=== PATIENT | male | born 1955 | race Caucasian/White ===

== ENCOUNTER 2016-11-18 10:46 | Inpatient (IN) | payer OTHER ==
[~2016-11-18] VITALS: Ht 177.8 cm; Wt 106.5 kg
--- NOTE | ~2016-11-18 | ECH ---
Transthoracic Echocardiography Report (TTE) Demographics Patient Name JW PENDLETON Date of Study 11/21/2016 Patient Number [id number] Visit Number [id number] Date of 1955 Room Number 523 Accession Number [id number] Gender Male Age 61 year(s) Referring Peng Torres MD Cda Teacher Leelee Gallrado [facility] Physician Glenn Esparza Physician Interpreting Amando Vanegas Molding Line Assistant Physician Supervising Ordering Physician Peng Torres MD, MD/P Nurse Stress Student Development Advisor Conclusions Summary Technically adequate exam. The estimated left ventricular ejection fraction is 60-65%. Mild left ventricular hypertrophy. No significant valvular regurgitant abnormalities. Procedure Type of Study TTE procedure:Echo Complete SF. Procedure Date Date: 11/21/2016 Start: 10:47 AM Technical Quality: Adequate visualization Indications:Fever of unknown origin. Appropriate Use Criteria: 2 Height: 70 inches Weight: 210 pounds BSA: 2.13 m Rhythm: Within normal limits HR: 77 bpm BP: 132/79 mmHg M-Mode/2D Measurements LV Diastolic Dimension: 5.09 cm LV Systolic Dimension: 3.65 cm LV Septum Diastolic: 1.29 cm LV PW Diastolic: 1.13 cm AO Root Dimension: 3.69 cm Cardiac Output: 8.05 l/min LA Dimension: 4.09 cm Cardiac Index: 3.78 l/min*m LA volume index: 32 ml/m LVOT: 2.36 cm RV Base: 3.2 cm LVOT VTI: 23.91 cm RV Mid: 2.3 cm LV Stroke volume: 104.54 ml RV Length: 7.6 cm LV Stroke volume index: 49.08 ml/m Doppler Measurements AV Peak Velocity: 1.5 m/s MV Peak E-Wave: 0.81 m/s AV Peak Gradient: 9 mmHg MV Peak A-Wave: 0.68 m/s AV Mean Gradient: 4.78 mmHg MV E/A Ratio: 1.19 LVOT Peak Velocity: 1.31 m/s MV P1/2t: 58.1 msec AV Area (Continuity):3.6 cm MV Deceleration Time: 203.1 msec MV Area (PHT): 3.79 cm PV Peak Velocity: 0.92 m/s PV Peak Gradient: 3.38 mmHg RA Area: 16.26 cm Findings Left Ventricle The left ventricle is normal in size . Mild left ventricular hypertrophy. Diastolic assessment reveals normal relaxation. Right Ventricle Normal right ventricle structure and function. Left Atrium Normal left atrial size. Right Atrium Normal right atrial size. Mitral Valve Normal mitral valve structure and function. Aortic Valve Normal aortic valve structure and function. Tricuspid Valve Normal tricuspid valve structure and function. Pulmonic Valve Normal pulmonic valve structure and function. Pericardial Effusion No evidence of pericardial effusion. Miscellaneous Visualized portions of the aortic root and ascending aorta appear normal in size. Pleural Effusion No evidence of pleural effusion. Contractility Score LV regional wall motion:(0-Non visualized 1-Normal 2-Hypokinesis 3-Akinesis 4-Dyskinesis 5-Aneurysm) Signature
--- NOTE | ~2016-11-18 | HP ---
ADMIT: 11/18/2016 RM/LOC: 523 [facility] MR#: [id number] [id number] [place], [place] [address] JW PENDLETON [address] [place] [address] History and Physical SEX: M AGE: 61 : 1955 DATE OF SERVICE: 11/18/2016 CHIEF COMPLAINT: Dizziness, diarrhea. HISTORY OF PRESENT ILLNESS: Jw is a very pleasant 61-year-old [facility] patient, who is normally seen through the [facility]. [facility] this afternoon for an elective admission for chronic alcohol abuse and dependence, but noted that he was feeling dizzy and had been having about 4-5 days of persistent profuse watery diarrhea. He was found to be hypotensive and have a bump in his baseline serum creatinine, was sent to the [facility] Emergency Department for further evaluation and management. While down in the ER, he received 2 L of intravenous fluids and replacement for his potassium and was subsequently admitted to the hospital for further observation. He was found to be hypotensive and orthostatic down in the ER. At the time I see him up on the hospital floor, he is actually feeling a little better. He was about to sit down and have dinner. He is denying any abdominal pain, blood in his stools, fevers, nausea, vomiting, chest pain, cough, rash, or swelling in his legs. PAST MEDICAL HISTORY: 1. Chronic alcohol abuse and dependence. States his last drink was 8-9 days prior to admission and again, he was just to be admitted to the [facility] for treatment. 2. Fatty liver disease, possible alcoholic cirrhosis. 3. History of GI bleed. 4. Mejia's esophagus on EGD 05/2016. 5. Spinal stenosis. 6. Hypertension. 7. Stage 3 chronic kidney disease, baseline creatinine is not known. 8. Depression. 9. Vitamin D deficiency. 10.Gout. 11.Anemia of chronic disease. PAST SURGICAL HISTORY: Noncontributory, no significant. ALLERGIES: NONE. SOCIAL HISTORY: Smokes about a third of a pack of cigarettes per day. He has been smoking in upwards of a half pack of cigarettes per day for the last 30 years. He drinks in upwards of 1/2 to 1 pint of vodka every day. Again, his last drink was 8-9 days ago. He denies any recreational drug use. 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 Again, he receives most of his care through the [facility]. FAMILY HISTORY: Noncontributory. REVIEW OF SYSTEMS: As per HPI. All others reviewed and negative. ADMIT: 11/18/2016 RM/LOC: 523 [facility] MR#: [id number] [address] [address] JW PENDLETON [address] [place] [address] History and Physical SEX: M AGE: 61 : 1955 PHYSICAL EXAMINATION: VITAL SIGNS: His blood pressure is 109/76, pulse 100, respirations 16, temp 98.0, O2 saturation is 100% on room air. GENERAL: He is awake, alert, no acute distress. Comfortable in the hospital bed. HEENT: Normocephalic, atraumatic. NECK: Supple. No lymphadenopathy. No thyromegaly. HEART: Regular rate and rhythm. No murmurs, gallops, or rubs. LUNGS: Clear to auscultation bilaterally. ABDOMEN: Soft, nontender, nondistended. No rebound, guarding, or masses. EXTREMITIES: No cyanosis, clubbing, or edema. LABORATORY AND X-RAY DATA: CBC shows normal white count of 11.5, hemoglobin of 14.4, hematocrit 43.8, and platelet 177, INR is mildly elevated at 1.2. CMP shows a potassium of 3.1, this was replaced down in the ER initially. CO2 is mildly depressed at 21, glucose 114, creatinine 3.3, again his baseline is unknown. Bilirubin is 2.5. Alkaline phosphatase 219. Urinalysis shows 74 hyaline casts per high-power field. 2+ urobilinogen, 1+ protein. Stool culture thus far is negative for Cryptosporidium, negative for Giardia. C. diff, enteric pathogen panel O and P are pending. ASSESSMENT: 1. Acute gastroenteritis and diarrhea. 2. Dehydration. 3. Orthostatic hypotension secondary to dehydration. 4. Hypokalemia, this was initially replaced in the Emergency Department. We will recheck on a BMP in the morning. 5. Acute kidney injury secondary to dehydration and diarrhea. We will obtain a baseline creatinine from the [facility] to ensure we know what we are shooting for here. 6. History of alcoholism. His last drink was 8-9 days ago. The plan will be [facility]. ADMIT: 11/18/2016 RM/LOC: 523 [facility] MR#: [id number] [address] [place] [id number] JW PENDLETON [address] [place] [address] History and Physical SEX: M AGE: 61 : 1955 7. Fatty liver disease. 8. Chronic obstructive pulmonary disease. 9. Mejia's esophagus. 10.Tobacco abuse. 11.History of gastrointestinal bleed. 12.Spinal stenosis. 13.Hypertension. PLAN: We will continue most of his home medications with the exception of his lisinopril and recheck a set of orthostatic pressures on him again in the morning. Again with a BMP, we will await the C. diff on his stools and the enteric pathogen panel. Prasanna Khoury MD/ aguilar JOB #: [id number] CC: Prasanna Khoury, Attending Physician Prasanna Khoury, Family Physician
--- NOTE | 2016-11-23 10:02 | CO ---
ADMIT: 11/21/2016 RM/LOC: 523 [facility] MR#: [id number] [address] [facility] [address] [place], [place] [address] JW PENDLETON [address] [place] [address] Consultation SEX: M AGE: 61 : 1955 DATE OF CONSULTATION: 11/22/2016 ATTENDING PHYSICIAN: Prasanna Khoury CONSULTING PHYSICIAN: Ed Velez MD REASON FOR CONSULTATION: Pancytopenia. HISTORY OF PRESENT ILLNESS: Mr. Pendleton is a pleasant 61-year-old patient, who usually receives care through the [facility]. This is hospital day #5 with the admitting diagnoses of orthostatic hypotension and diarrhea. The patient was presenting to the [facility] to check himself in for his chronic alcoholism at approximately 8 days after his last drink when he was noted to have these symptoms of dizziness and several days of diarrhea. He was then admitted to [facility] for further workup. Here on hospital day #5, many of his initial complaints have resolved including his blood pressures, his diarrhea as well as the acute kidney injury that was noted on initial labs. He did however have a fever with the most recent one being about 36 hours ago and was discovered to have a pneumonia for which he is taking Levaquin at this time. He generally feels pretty well, is eating well, and feels much better than when he previously was admitted. The patient does recall being told that he has been anemic in the past. He states that he has been scoped from above after a bout of hematemesis and was found to have esophagitis and gastritis likely secondary to his alcohol use at that time. He has been told that he has splenomegaly related to his cirrhosis secondary to alcoholism. He is not aware of any other times that his blood counts have been low. Currently, the patient denies any recent bleeding events, and he is bruising somewhat but this is likely due to the frequent lab sticks and IV starts here in the hospital. PAST MEDICAL HISTORY: 1. Alcoholism, abuse and dependence. 2. Alcoholic cirrhosis. 3. Splenomegaly. 4. History of upper GI bleed. 5. Spinal stenosis. 6. Hypertension. 7. Depression. 8. Vitamin D deficiency. 9. Gout. 10.Anemia of chronic disease. ALLERGIES: NO KNOWN MEDICAL ALLERGIES. MEDICATIONS: Currently include: 1. Colace. 2. Iron. 3. Flexeril. 4. Levaquin 750 mg. ADMIT: 11/21/2016 RM/LOC: 523 [facility] MR#: [id number] [address] [address] JW PENDLETON [address] [place] [address] Consultation SEX: M AGE: 61 : 1955 5. Protonix. 6. Spiriva. 7. Prozac. 8. Tylenol. 9. P.R.N. Zofran. SOCIAL HISTORY: Smokes currently about 1/3 of pack per day. He has greater than 15 pack-years. Typically drinks 1/2 to 1 pint of vodka everyday. Last drink was 8-9 days prior to admission. No recreational drug use. 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 FAMILY HISTORY: Reviewed and noncontributory. REVIEW OF SYSTEMS: A complete review of systems was conducted and was found to be negative except for what was mentioned above in the HPI. PHYSICAL EXAMINATION: VITAL SIGNS: T-max 24 hours 100.9, pulse 90, respiratory rate 16, blood pressure 145/57, saturating 98% on room air. GENERAL: This is an alert, oriented adult male, in no acute distress. He is a good historian. HEENT: Pupils are equal, round, and reactive to light. Sclerae are nonicteric. Mouth is free from oral lesions. Normal mucous membranes. NECK: Trachea midline with no cervical lymphadenopathy. HEART: Regular rate and rhythm, with no murmurs, rubs, or gallops. LUNGS: Clear to auscultation bilaterally with normal respiratory effort. ABDOMEN: Soft, nontender to palpation. Difficult to appreciate splenomegaly or hepatomegaly due to some adiposity. EXTREMITIES: No clubbing. No cyanosis. No edema. SKIN: Mild ecchymosis near IV puncture sites. No other concerning skin lesions at this time. NEUROLOGIC: Cranial nerves II through XII are grossly intact. No focal deficits. MUSCULOSKELETAL: Strength is 5/5 in all extremities with no swollen or inflamed joints. PSYCH: Mood is euthymic. Affect is full and mood congruent. LABORATORY AND RADIOLOGY: Admission WBC 11.5, increased to 15.8, dropping to 8.1 the next day, most recent 3.8. Admission hemoglobin 14.4, with 14.8 the next day, dropping to 11.7, and currently at 10.3. Outpatient review of October of 2016, hemoglobin was also 10.0. Platelets on admission 177, with 203 the next day, dropping to 117, currently 80. Creatinine, initially in the 3's, now resolved back to baseline. IMPRESSION AND RECOMMENDATIONS: A 61-year-old male with alcoholism and pancytopenia. 1. Pancytopenia. The patient's current values have been slowly decreasing ever since hospital day #2, when there was a significant concomitant drop of all values, highly suggestive of hemodilution. The patient's current ADMIT: 11/21/2016 RM/LOC: 523 [facility] MR#: [id number] [address] [place] [id number] JW PENDLETON [address] [place] [address] Consultation SEX: M AGE: 61 : 1955 hemoglobin is near his baseline and is likely related to anemia of chronic disease although some macrocytosis is noted. I will send for a folic acid and B12 although cirrhosis of the liver may certainly cause macrocytosis. Okay to continue iron replacement at this time. The drop of platelets are not concerning for heparin-induced thrombocytopenia and most likely represent more of a true baseline between 80 and 100 given his cirrhosis and splenomegaly. The slightly low white blood cell count is likely not putting him at extra risk for infection and can be compatible with a bone marrow toxicity from alcoholism. In summary, all the patient's blood counts are entirely compatible with alcoholism, cirrhosis, and splenomegaly. Aggressive further workup including bone marrow biopsies are not recommended at this time. TOTAL TIME SPENT: 60 minutes. Thank you for this interesting consultation. Please call if any further questions. Ed Velez MD/ aguilar JOB #: [id number] CC: Prasanna Khoury, Attending Physician Prasanna Khoury, Family Physician
--- NOTE | 2016-11-25 07:57 | CO ---
ADMIT: 11/21/2016 RM/LOC: 523 [facility] MR#: [id number] ACC#: [id number] [address] [facility] [address] [place], [place] [address] JW PENDLETON [address] [address] Consultation SEX: M AGE: 61 : 1955 ATTENDING PHYSICIAN: Prasanna Khoury CONSULTING PHYSICIAN: Jennifer Mason MD REASON FOR CONSULTATION: Evidence of persistent low-grade fevers, persistent diarrhea. HISTORY OF PRESENT ILLNESS: Mr. Pendleton is a 61-year-old white gentleman, who was hospitalized at [facility] with evidence of persistent diarrhea, evidence of dehydration, acute kidney injury. His acute creatinine on admission was 3.3, creatinine on the was 1.7. At this time, we are asked to see him as his diarrhea has not resolved. He reports that he had diarrhea which started before [facility] He has had no history of travel that he is aware of. No history of any exposure. He, at this time, is still having fairly significant persistent diarrhea. His workup thus far shows a sodium of 141, potassium 4.7, BUN and creatinine currently is 13 and 1.7. White count 7.6, platelet count of 98,000, his hemoglobin is 12.2. Procalcitonin is less than 0.5. On the , lactic acid 1.7. Blood cultures, on the , are pending; on the , they were negative. C. diff on 11/[address] of abdomen and pelvis is pending. Stool for enteric pathogens, cryptosporidium, and Giardia are all negative. We are asked to see and assist in his care. PAST MEDICAL HISTORY: 1. History of alcohol dependence. 2. Fatty liver. 3. History of GI bleed. 4. Mejia's esophagus, EGD 05/2016. 5. Spinal stenosis. 6. Hypertension. 7. Stage 3 chronic kidney disease. 8. Depression. 9. Gout. 10.History of anemia of chronic illness. SOCIAL HISTORY: He is a . [facility] He does smoke about a third of a pack of cigarettes per day. He has been smoking upwards of a half-pack of cigarettes per day for the last 30 years. He drinks 1-1/2 to 1 pint of vodka everyday, currently is undergoing treatment for sobriety. He denied any recreational drug use. He does have one tattoo fifteen years ago. 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 PHYSICAL EXAMINATION: GENERAL: He is alert. HEENT: Normal. HEART: Regular rhythm. LUNGS: Clear, but diminished to auscultation. ABDOMEN: Rounded, it is nontender. Hypoactive bowel sounds. EXTREMITIES: No evidence of edema. ADMIT: 11/21/2016 RM/LOC: 523 [facility] MR#: [id number] [address] [place] [id number] JW PENDLETON [address] [place] [address] Consultation SEX: M AGE: 61 : 1955 ASSESSMENT AND PLAN: Admission of a 61-year-old white gentleman with: 1. Persistent low-grade fever. 2. Persistent diarrhea. 3. Some noted blood in his stool. 4. History of alcohol dependence. 5. Fatty liver. 6. History of gastrointestinal bleed. 7. Mejia's esophagus. 8. Spinal stenosis. 9. Hypertension. 10.Stage 3 chronic kidney disease. 11.While hospitalized, acute kidney injury, which is resolving, which was felt to be secondary to dehydration, secondary to diarrhea. 12.Depression. 13.Vitamin D deficiency. 14.Gout. 15.History of anemia of chronic illness. At this time, we will await his CT of abdomen and pelvis. We will await further blood cultures. He is also scheduled for EGD and colonoscopy. No changes in medications will be made at this time, we will await these above studies. Dr. Kuo will follow in the morning. Jennifer Mason MD/ aguilar JOB #: [id number] CC: Prasanna Khoury, Attending Physician Prasanna Khoury, Family Physician
--- NOTE | 2016-11-27 07:13 | CO ---
ADMIT: 11/21/2016 RM/LOC: 523 [facility] MR#: [id number] [address] [facility] [address] [place], [place] [address] JW PENDLETON [address] [place] [address] Consultation SEX: M AGE: 61 : 1955 DATE OF CONSULTATION: 11/23/2016 ATTENDING PHYSICIAN: Prasanna Khoury CONSULTING PHYSICIAN: Lucas Wade MD HISTORY OF PRESENT ILLNESS: This is a pleasant 61-year-old male seen in Surgical consultation for Dr. Khoury for consideration of upper and lower endoscopy. Jw describes, over the last about 10 days, having watery diarrhea. He initially had severe episodes of that starting at the outpatient [facility] center for chronic alcoholism. He had nausea, vomiting associated with that at that time. After admission here for orthostatic hypotension and dizziness and these other GI symptoms, his symptoms improved. He was just about ready for discharge, however, was found to be pancytopenic. He was kept for additional workup. He is now however had return of the severe diarrhea, which started again last night. He was found to be Hemoccult-positive on 1 of 3 checks last night. He has not noticed any blood in the stool. He is uncertain that he has had a prior upper endoscopy, but that is documented in the chart. He has had colonoscopy, but it has been years ago. He does have chronic alcoholism and likely many of the admission laboratory studies are related to that underlying illness. He does not have nausea or vomiting now and that actually he does report being hungry and has tolerated some regular food. PAST MEDICAL HISTORY: 1. Chronic alcohol abuse. 2. Alcoholic cirrhosis. 3. Hypertension. 4. Depression. 5. Gout. 6. Anemia of chronic disease. ALLERGIES: NO KNOWN MEDICAL ALLERGIES. MEDICATIONS: At admission were: 1. Colace. 2. Iron. 3. Flexeril. 4. Levaquin. 5. Protonix. 6. Spiriva. 7. Prozac. 8. Tylenol. 9. Zofran. SOCIAL HISTORY: He currently smokes daily. He has for years. He drinks 1/2 to 1 pint of vodka daily, but quit about 12 days ago by his estimation. He denies recreational drug use. ADMIT: 11/21/2016 RM/LOC: 523 [facility] MR#: [id number] [address] [facility] [address] [place], [place] [address] HELDERJW Vanegas [facility] [place] [address] Consultation SEX: M AGE: 61 : 1955 FAMILY HISTORY: Noncontributory after reviewing. REVIEW OF SYSTEMS: A 10-point review of systems is performed. He denies any other recent changes with the exception of those mentioned in the history of present illness. PHYSICAL EXAMINATION: GENERAL: Jw is alert, oriented, and in no acute distress. VITAL SIGNS: He is currently afebrile, but has had a fever during admission up to 101 degrees. His vital signs are currently stable. HEENT: Cranial nerves are intact. Sclerae appear grossly anicteric. NECK: Supple. Trachea is midline, without adenopathy. LUNGS: Clear bilaterally. HEART: Regular rate and rhythm. ABDOMEN: Soft, nontender without palpable fluid wave or mass. EXTREMITIES: Calves are soft bilaterally with no calf tenderness. No clubbing, cyanosis, or edema. LABORATORY STUDIES: White blood cell count 7.6, hemoglobin of 12.2, platelet count of 98. Coagulation studies; INR 1.28, PTT of 29.9. Sodium 141, potassium 4.7, chloride 111 ,CO2 of 19, BUN of 13, creatinine of 1.7, total bilirubin of 1.7, albumin of 2.8, alkaline phosphatase of 160, AST and ALT are normal. Amylase and lipase normal. IMPRESSION: 1. Diarrhea. 2. Hemoccult-positive stool. 3. History of alcoholic cirrhosis. 4. Fever. PLAN: He has a CT scan ordered today for further evaluation of the fever and diarrhea. Stool cultures on admission were negative for enteric pathogen or C. diff. I did discuss proceeding with esophagogastroduodenoscopy and colonoscopy for assistance with the workup. I discussed the risks of these in detail with Jw including bleeding, perforation, missed pathology, and an incomplete exam. He understands these and does wish to proceed. Lucas Wade MD/ aguilar JOB #: [id number] CC: Prasanna Khoury, Attending Physician Prasanna Khoury, Family Physician
--- NOTE | 2016-11-27 07:18 | OR ---
ADMIT: 11/21/2016 RM/LOC: 523 [facility] MR#: [id number] [address] [place], [place] [address] JW PENDLETON [address] [place] [address] Operative/Delivery Room Report SEX: M AGE: 61 : 1955 SURGERY DATE: 11/24/2016 SURGEON: Lucas Wade MD PREOPERATIVE DIAGNOSIS: Anemia, Hemoccult-positive stool. POSTOPERATIVE DIAGNOSES: 1. Gastritis. 2. Small ascending colon polyp. 3. Esophageal and gastric varices, grade 1. 4. Internal hemorrhoids. PROCEDURE: 1. Esophagogastroduodenoscopy with biopsy. 2. Complete colonoscopy with cold forceps polypectomy and random biopsy. ANESTHESIA: IV general. DESCRIPTION OF PROCEDURE: The patient was taken to the endoscopy suite and placed left side down on his hospital cart. A bite-block was placed and IV sedation was established. The upper endoscope was advanced through the oropharynx into the esophagus without difficulty. The scope was pushed under visualization of the stomach. There were minimal engorged distal esophageal varices. Air was used to insufflate the stomach. The pylorus was intubated. The 1st and 2nd portions of the duodenum were examined and appeared grossly normal. Duodenal bulb biopsies were obtained. The scope was withdrawn to the stomach. In the antrum, there was no ulcer but there was hyperemia. Biopsies were obtained. On retroflexion of the scope, the gastric body and fundus appeared normal. There was mild gastric variceal disease proximally without bleeding. The scope was withdrawn. The esophageal mucosa appeared normal. Next, a rectal exam was performed, there were no palpable abnormalities. The ADMIT: 11/21/2016 RM/LOC: 523 [facility] MR#: [id number] [address] [place] [address] [address] [place], [place] [address] JW PENDLETON[address] [address] Operative/Delivery Room Report SEX: M AGE: 61 : 1955 flexible colonoscope was advanced under direct visualization through the entire colon to the level of the cecum. The cecum was identified by its anatomic landmarks in the ileocecal valve. The prep was good. Care was taken upon withdrawal of the scope to examine the mucosa of the colon. The cecum appeared normal. In the distal ascending colon, there was a small 3 mm to 4 mm adenomatous polyp which was removed in its entirety with biopsy forceps. The remainder of the transverse colon and descending colon appeared normal without inflammatory change or other polyp. Random biopsies were obtained to evaluate for colitis microscopically. The scope was withdrawn to the rectum and retroflexed, and this demonstrated mild internal hemorrhoidal tissue. Air was suctioned. The patient tolerated the procedure well and transferred to the recovery area in stable condition. Lucas Wade MD/ aguilar JOB #: [id number] CC: Prasanna Khoury, Attending Physician Prasanna Khoury, Family Physician
--- NOTE | 2016-11-28 16:00 | CO ---
ADMIT: 11/18/2016 RM/LOC: 523 [facility] MR#: [id number] [address] [place], [place] [address] JW PENDLETON [address] [address] Consultation SEX: M AGE: 61 : 1955 DATE OF CONSULTATION: 11/19/2016 ATTENDING PHYSICIAN: Prasanna Khoury CONSULTING PHYSICIAN: Jayjay Hoover MD REASON FOR CONSULTATION: Acute kidney injury on chronic kidney disease stage 3/4. HISTORY OF PRESENT ILLNESS: The patient is a pleasant 61-year-old gentleman, who was admitted to the hospital with acute renal failure. He has a history of chronic alcohol abuse and dependence and presented to the outpatient drug and alcohol treatment center through the [facility] yesterday. He complained of dizziness and reported that he had been having about 5 days of persistent diarrhea. He was sent over to the emergency room and was found have a creatinine of 3.3 yesterday. It is elevated to 3.7 today. He has noticed decreased urine output. He denies any fevers, chills, or rigors. He has had some vomiting as well. He denies any history of obuu-bil-oxorvqu medications or herbal supplements. He has a history of chronic kidney disease stage 3/4 at baseline. He is generally followed by [facility]. He notes he reports that his chronic kidney disease is secondary to hypertensive nephrosclerosis. As per his report, his creatinine was 2.2 about a month ago, and it was 1.7 last year. There is no verification of that at this time. We have called for records. His breathing is fair. His appetite has been poor. He denies any lower extremity edema, orthopnea, or PND. Denies any skin rash or nodules. REVIEW OF SYSTEMS: A complete review of systems is negative in detail except as mentioned in history of present illness above. PAST MEDICAL HISTORY: 1. Alcoholic cirrhosis. 2. GI bleed. 3. Mejia esophagitis. 4. Spinal stenosis. 5. Hypertension. 6. Chronic alcohol abuse and dependence. 7. Chronic kidney disease stage 3/4. 8. Depression. 9. Vitamin D deficiency. 10.Gout. 11.Anemia of chronic disease. PAST SURGICAL HISTORY: None. ALLERGIES: NO KNOWN DRUG ALLERGIES. SOCIAL HISTORY: He smokes about half a pack of cigarettes a day. He drinks a pint of vodka every day. He has not had a drink for the last 8 days or so. He has worked several jobs. 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 FAMILY HISTORY: Denies any family history of chronic kidney disease or renal replacement therapy. PHYSICAL EXAMINATION: VITAL SIGNS: Temperature 100.3 Fahrenheit, pulse 104, blood pressure 100/57, saturating 98% on room air. GENERAL: He is comfortable in no acute distress. HEENT: Head is nontraumatic and normocephalic. Pale conjunctivae. Dry mucosa. NECK: Supple without any JVD. CHEST: Clear to auscultation. CVS: Regular rhythm. S1, S2 heard. No rubs, murmurs, or gallops. ABDOMEN: Soft, nontender. EXTREMITIES: No edema. SKIN: No rash or nodules. NEUROLOGIC: Alert, awake, oriented x3. He is able to move all extremities. PSYCHIATRIC: Affect and memory within normal limits. MUSCULOSKELETAL: Major joints within normal limits. Range of motion within normal limits. LABORATORY DATA: Reviewed. BMP with sodium 136, potassium 3.0, creatinine 3.7, it was 3.3 yesterday. CO2 is 22. Calcium 8.8. Hemoglobin 14.8 with a white count of 15.8. Urinalysis with 1+ protein, negative blood, negative leukocyte esterase. He did have hyaline casts in his urine. ASSESSMENT AND PLAN: Acute kidney injury on chronic kidney disease stage 3/4 - baseline serum creatinine is unclear. He verbalizes that this is around 2.2. [facility] baseline [facility] function. His acute kidney injury is likely prerenal in etiology in the setting of ongoing GI losses. His urinalysis is noninflammatory that argues against a glomerulonephritis or intrinsic renal disease. I recommend supportive renal care at this time and proceeding aggressive IV fluid resuscitation. He is not making a whole lot of urine at this time, and I discussed the possibility of renal replacement therapy should his kidney function not recover. He is agreeable to this if needed. Thank you for this consultation and allowing me the opportunity to participate in this patient's care. Please do not hesitate to contact with any questions. Jayjay Hoover MD/ aguilar JOB #: [id number] CC: Prasanna Khoury, Attending Physician ADMIT: 11/18/2016 RM/LOC: 523 [facility] MR#: [id number] [address] [place] [id number] JW PENDLETON [address] [place] [address] Consultation SEX: M AGE: 61 : 1955 Prasanna Khoury, Family Physician
--- NOTE | 2016-11-28 19:40 | ER ---
ADMIT: 11/18/2016 RM/LOC: 523 [facility] MR#: [id number] [address] [place], [place] [address] JW PENDLETON [address] [address] Emergency Room Report SEX: M AGE: 61 : 1955 DATE: 11/18/2016 ADDENDUM: See T-sheet for complete H and P. This 61-year-old male with history of alcohol abuse, is in [place] to get started on a 30-day inpatient alcohol treatment program at the [facility]. When he was getting his intake at the facility noted that he was lightheaded and when they checked his blood pressure, he was hypotensive. They sent him to our facility for further workup. He states he has been having diarrhea for the past 4 days, but really no other symptoms at this time. His last drink was 8-9 days ago. The patient was hypotensive on arrival and orthostatic and felt lightheaded when trying to stand. We checked labs and his CBC was 11.5, his potassium was low at 3.1 and that was replaced in the ER. His creatinine is 3.3, and he states he normally runs in the lower 2s. INR is 1.28 and urinalysis showed hazy urine, 1+ protein, and urobilinogen but otherwise not infected. He did not have a fever here and does not appear septic. His blood pressure has responded to volume replacement but he still feels symptomatically lightheaded when he tries to stand. Due to his creatinine and symptoms, we will plan to keep the patient. We tried to get the patient admitted to the [facility], but they are on diversion, so I contacted Dr. Khoury, who graciously agrees to bring the patient into his service. The patient is admitted in improved condition. DIAGNOSES: 1. Diarrhea. 2. Volume depletion. 3. Orthostatic hypotension. 4. Hypokalemia. 5. Acute on chronic kidney disease. 6. History of alcohol abuse. Ga Zamora MD/ aguilar JOB #: [id number] CC: Prasanna Khoury MD, Attending Physician Prasanna Khoury MD, Family Physician
[2016-12-01] MEDS ORDERED: TYLENOL DPS325 MG PO (12:59)
[2016-12-01] MEDS ORDERED: FLEXERIL DPS5 MG PO (12:59)
[2016-12-01] MEDS ORDERED: COLACE-DPS100 MG PO (13:00)
[2016-12-01] MEDS ORDERED: FERROUS SULFAT325 MG PO (13:00)
[2016-12-01] MEDS ORDERED: ZESTRIL DPS10 MG PO (13:01)
[2016-12-01] MEDS ORDERED: OMEPRAZOLE20 MG PO (13:01)
[2016-12-01] MEDS ORDERED: PROZAC DPS20 MG PO (13:01)
[2016-12-01] MEDS ORDERED: METAMUCIL SF P3.4 GM PO (13:02)
[2016-12-01] MEDS ORDERED: CARAFATE DPS1 GM PO (13:02)
[2016-12-01] MEDS ORDERED: PROAIR RESPICL90 MCG IH (13:02)
[2016-12-01] MEDS ORDERED: NORVASC DPS10 MG PO (13:02)
[2016-12-01] MEDS ORDERED: SPIRIVA18 MCG IH (13:02)
[2016-12-01] MEDS ORDERED: AMOXICILLIN875 MG PO (13:03)
--- NOTE | 2016-12-15 08:26 | DS ---
ADMIT: 11/21/2016 RM/LOC: 523 [facility] MR#: [id number] [facility]#: [id number] [address] [address] JW PENDLETON [facility] [address] Discharge Summary SEX: M AGE: 61 : 1955 ADMISSION DATE: 11/21/2016 DISCHARGE DATE: 12/01/2016 ADMITTING DIAGNOSES: 1. Acute gastroenteritis and diarrhea, presumed infectious in origin. 2. Dehydration. 3. Orthostatic hypotension. 4. Acute kidney injury secondary to dehydration and diarrhea. 5. Stage 3 chronic kidney disease. 6. Hypokalemia. 7. Orthostatic hypotension secondary to dehydration. 8. History of alcohol abuse and dependence. 9. Fatty liver disease. 10.Chronic obstructive pulmonary disease. 11.Mejia's esophagus. 12.Tobacco abuse. 13.History of GI (gastrointestinal) bleed. 14.Spinal stenosis. 15.Hypertension. DISCHARGE DIAGNOSES: 1. Acute gastroenteritis with diarrhea, resolved. 2. Dehydration, resolved. 3. Metabolic acidosis secondary to acute diarrhea, resolved. 4. Orthostatic hypotension secondary to dehydration, resolved. 5. Acute kidney injury, resolved. 6. Stage 3 chronic kidney disease with creatinine responding down to a baseline of 1.3. 7. Alcoholic cirrhosis. 8. Grade 1 esophageal varices. 9. Portal hypertension. 10.Gastritis. 11.Adenomatous colon polyp. 12.COPD (chronic obstructive pulmonary disease). 13.Mejia's esophagus. 14.Chronic tobacco abuse. 15.Chronic alcohol abuse and dependence. 16.Spinal stenosis. 17.Right-sided empyema. PROCEDURES: 1. Upper GI endoscopy and lower GI endoscopy with Dr. Wade, General Surgery, on 11/24/2016 showing biopsy-proven gastritis and a small ascending colon tubular adenoma. Grade 1 esophageal gastric varices. Internal hemorrhoids. 2. Placement of pigtail catheter chest tube for right-sided empyema, performed on 11/25/2016 by Interventional Radiology. CONSULTATIONS: ADMIT: 11/21/2016 RM/LOC: 523 [facility] MR#: [id number] [address] [facility] [address] [place], [place] [address] JW PENDLETON [address] [place] [address] Discharge Summary SEX: M AGE: 61 : [address] Buckley, Nephrology, consulted 11/19/2016. 2. Dr. Mason for Dr. Kuo, Infectious Disease, consulted on 11/21/2016. 3. Dr. Velez with Hematology/Oncology, consulted 11/22/2016. 4. Dr. Lucas Wade, General Surgery, consulted 11/23/2016. HISTORY AND PHYSICAL EXAM: Jw is a 61-year-old, [place] [facility], who was [facility] in [place] [facility] the afternoon of 11/18/2016 for his chronic alcohol abuse and dependence. He was noted to be feeling very dizzy and lightheaded with positional changes and having four to five days of persistent profuse watery diarrhea. He was found to be hypotensive and have an increase in his baseline serum creatinine and was sent to the [facility] Emergency Department for further evaluation. While in the ER, he received 2 L of intravenous fluids and potassium supplementation for a low potassium and was subsequently admitted to the hospital for further observation. He was, at the time of admission, found to be hypotensive and orthostatic. Some of this improved with his IV hydration. On his initial labs, his white count was 11.5, hemoglobin is 14.4, platelets 177, INR was mildly elevated at 1.2, potassium was 3.12, creatinine was 3.3 with a presumed baseline of 2. It should be noted that his creatinine responded very nicely to the IV fluids he was given here in the hospital and dropped down to 1.3 by the time of admission. HOSPITAL COURSE: Jw was admitted up to the medical-surgical floor. He was started on aggressive IV hydration. Dr. Hoover with Nephrology was consulted to assist with his acute kidney injury. Jw's creatinine began to respond very nicely to the IV fluids and symptomatically began feeling better. It took several days for the diarrhea to ultimately resolve. On 11/20/2016, he began spiking fevers as high as 101.2. Aside from his diarrhea, he denied any chest pain or shortness of breath. He was not having any cough. The source of these fevers was uncertain. Procalcitonin and lactic acid tests were drawn as were blood cultures, all of which remained negative. He was started empirically on IV antibiotics and when no source could be found, a CT scan of his chest, abdomen, and pelvis was obtained. Chest CT showed a loculated right-sided pleural effusion. Dr. Kuo with Infectious Disease was consulted for assistance with the antibiotics. Additional workup included a negative HIV test, negative hepatitis C antibody and antigen panels, and MRI of his liver which showed cirrhotic changes and evidence of portal hypertension. Ultimately, he had a chest tube placed by Interventional Radiology on 11/25/2016, the culture of which ultimately did not grow anything out. Workup for his diarrhea included a negative stool enteric antigen panel, negative C diff tests x2, negative O and P. He was found to be pancytopenic approximately day two to three of admission. Hematology/Oncology was consulted. It was felt that his pancytopenia was likely secondary to his chronic liver disease and this was confirmed after evaluation by Dr. Velez with Hem/Onc. General Surgery, Dr. Wade, was ADMIT: 11/21/2016 RM/LOC: 523 [facility] MR#: [id number] [facility] [address] [place] [phone] JW PENDLETON [address] [place] [address] Discharge Summary SEX: M AGE: 61 : 1955 consulted as well during the hospitalization for his iron deficiency anemia. Upper GI endoscopy showed evidence of gastritis and nonbleeding grade 1 esophageal varices. Biopsy of the stomach did show gastritis. Lower GI endoscopy was otherwise unremarkable with the exception of a small tubular adenoma in his ascending colon. Biopsies of his stomach and duodenum both showed evidence of gastritis and duodenitis respectively. A celiac panel was negative. He was started on a PPI and Carafate for the gastritis. Ultimately, all his blood cultures were negative. Again, his pleural fluid culture was negative and by the morning of 12/01/2016, it was felt that his chest tube could be pulled and he could be transitioned over to oral Augmentin for an additional seven days of treatment and be discharged back to the [facility] for drug and alcohol treatment. His diarrhea at the time of discharge had resolved and had been resolved for several days. DISPOSITION: Preliminary discharge disposition will be for him to be discharged back over the [facility]. Again, we are going to have Social Work ensure that they have room for him over there and if not, we will have to come up with an alternative plan. DISCHARGE CONDITION: Fair. DISCHARGE MEDICATIONS: Discharge medications will include: 1. Carafate 1 g p.o. a.c. and h.s. 2. Ferrous sulfate 325 mg b.i.d. 3. Metamucil 3.4 g p.o. daily. 4. Norvasc 10 mg daily. 5. Omeprazole 20 mg daily. 6. Prozac 40 mg q.a.m. 7. Spiriva 18 mcg inhaled daily. 8. Augmentin 875 mg p.o. b.i.d. for an additional seven days. 9. Flexeril 5 mg t.i.d. p.r.n. 10.Tylenol 650 mg q.4 hours p.r.n. 11.Proventil HFA two puffs q.4 hours p.r.n. 12.Lisinopril 10 mg daily. 13.Colace 100 mg b.i.d. FOLLOW UP: Further management will be per his drug and alcohol treatment and [facility]. Prasanna Khoury MD/ [place] JOB #: [id number] CC: Prasanna Khoury MD, Attending Physician Prasanna Khoury MD, Family Physician
== END 2016-12-01 12:19 | DRG 391 ==
LOC: ER 10:46 → 5MS 13:15
PROVIDERS: ADMIT Family Medicine
PROC: 0DB68ZX Excision of Stomach, Via Natural or Artificial Opening Endoscopic, Diagnostic (ICD-10-PCS; principal; 2016-11-24)
PROC: 0DBK8ZZ Excision of Ascending Colon, Via Natural or Artificial Opening Endoscopic (ICD-10-PCS; principal; 2016-11-24)
PROC: 0DB98ZX Excision of Duodenum, Via Natural or Artificial Opening Endoscopic, Diagnostic (ICD-10-PCS; principal; 2016-11-24)
PROC: 0W9930Z Drainage of Right Pleural Cavity with Drainage Device, Percutaneous Approach (ICD-10-PCS; 2016-11-25)
DX: A09 Infectious gastroenteritis and colitis, unspecified (principal); J18.9 Pneumonia, unspecified organism; J86.9 Pyothorax without fistula; D61.818 Other pancytopenia; N17.9 Acute kidney failure, unspecified; N18.3 Chronic kidney disease, stage 3 (moderate); E87.2 Acidosis; I85.00 Esophageal varices without bleeding; K76.6 Portal hypertension; E86.0 Dehydration; I95.1 Orthostatic hypotension; E87.6 Hypokalemia; K70.30 Alcoholic cirrhosis of liver without ascites; J44.9 Chronic obstructive pulmonary disease, unspecified; F10.20 Alcohol dependence, uncomplicated; K22.70 Barrett's esophagus without dysplasia; M48.00 Spinal stenosis, site unspecified; I12.9 Hypertensive chronic kidney disease with stage 1 through stage 4 chronic kidney disease, or unspecified chronic kidney disease; F32.9 Major depressive disorder, single episode, unspecified; D63.8 Anemia in other chronic diseases classified elsewhere; F17.210 Nicotine dependence, cigarettes, uncomplicated; R16.1 Splenomegaly, not elsewhere classified; K29.70 Gastritis, unspecified, without bleeding; I86.4 Gastric varices; K64.8 Other hemorrhoids; D12.2 Benign neoplasm of ascending colon; K44.9 Diaphragmatic hernia without obstruction or gangrene; E83.39 Other disorders of phosphorus metabolism; E83.42 Hypomagnesemia